=== PATIENT | female | born 1980 | race African-American/Black ===

== ENCOUNTER 2016-08-11 08:17 | Emergency (ER) | payer SELFPAY ==
[~2016-08-11] VITALS: Ht 170.2 cm; Wt 55.0 kg
[2016-08-11] MEDS ORDERED: LORAZEPAM 2MG/ML CPJ IV STA (09:07)
[2016-08-11] MEDS ORDERED: SODIUM CHLORIDE 0.9% 1,000 ML IV ONE (09:07)
[2016-08-11] MEDS ORDERED: FAMOTIDINE 20MG/2ML VIAL IV ONE (09:15)
[2016-08-11 09:38] LABS: BASOPHILS % 0.7 % (0.0-2.0); HEMATOCRIT. 42.9 % (36.0-48.0); HEMOGLOBIN. 14.8 g/dL (12.0-16.0); LYMPHOCYTES % 31.8 % (20.0-50.0); MEAN CORPUSCULAR HEMOGLOBIN 33.4 pg (28.0-32.0); MEAN CORPUSCULAR VOLUME 96.6 fL (81.0-99.0); MEAN PLATELET VOLUME 7.4 fl (7.4-10.4); MONOCYTES % 6.3 % (2.0-8.0); NEUTROPHILS % 61.2 % (40.0-76.0); PLATELET 247 x1000/uL (130-400); RED BLOOD CELL COUNT 4.44 mill/uL (4.2-5.4); RED CELL DISTRIBUTION WIDTH 13.9 % (11.6-14.6)
[2016-08-11 09:48] LABS: CARBON DIOXIDE 25 mEq/L (21-32); CHLORIDE 101 mEq/L (98-107)
[2016-08-11 09:50] LABS: ETHANOL BLOOD < 10 mg/dL
[2016-08-11 09:51] VITALS: BP 126/14
== END 2016-08-11 11:14 | disposition home or self-care (01) ==
LOC: ER 08:47
DX: F10.239 Alcohol dependence with withdrawal, unspecified (principal); Y90.0 Blood alcohol level of less than 20 mg/100 ml
CPT/HCPCS: 36415; 80048; 85025; 93005; 96374; 96375; 99285; G0482; J2060; J3490; J7030; Z7610

== ENCOUNTER 2019-02-21 13:25 | Emergency (ER) | payer MEDICAID ==
[~2019-02-21] VITALS: Ht 172.7 cm; Wt 64.0 kg
[2019-02-21] MEDS ORDERED: ONDANSETRON HCL 4MG/2ML INJ IV STA (16:37)
[2019-02-21] MEDS ORDERED: MORPHINE SULFATE 4 MG/ML CPJ (NOT FOR IM USE) IV STA (16:37)
[2019-02-21] MEDS ORDERED: SODIUM CHLORIDE 0.9% 1,000 ML IV ONE (16:37)
[2019-02-21] MEDS ORDERED: LORAZEPAM 2MG/ML CPJ IV ONE (17:00)
[2019-02-21 17:07] LABS: BASOPHILS % 0.8 % (0.0-2.0); HEMATOCRIT. 38.5 % (36.0-48.0); HEMOGLOBIN. 12.8 g/dL (12.0-16.0); LYMPHOCYTES % 22.6 % (20.0-50.0); MEAN CORPUSCULAR VOLUME 93.4 fL (81.0-99.0); MEAN PLATELET VOLUME 6.9 fl (7.4-10.4); MONOCYTES % 3.8 % (2.0-8.0); NEUTROPHILS % 72.8 % (40.0-76.0); PLATELET 424 x1000/uL (130-400); RED BLOOD CELL COUNT 4.12 mill/uL (4.2-5.4); RED CELL DISTRIBUTION WIDTH 17.2 % (11.6-14.6)
[2019-02-21 17:11] LABS: CHLORIDE 97 mEq/L (98-107)
[2019-02-21 18:07] LABS: CLARITY URINE CLEAR (CLEAR); COLOR URINE YELLOW (YELLOW); KETONES URINE 4+ (NEGATIVE); LEUKOCYTE ESTERASE URINE NEGATIVE (NEGATIVE); NITRITE URINE NEGATIVE (NEGATIVE); OCCULT BLOOD URINE TRACE (NEGATIVE); PROTEIN URINE TRACE (NEGATIVE); SPECIFIC GRAVITY URINE 1.028 (1.005-1.030); UROBILINOGEN URINE 0.2 E.U./dL (0.2-1.0)
[2019-02-21] MEDS ORDERED: KETOROLAC 30MG/ML VIAL IV ONE (18:30)
[2019-02-21 20:33] VITALS: BP 106/69
== END 2019-02-21 20:34 | disposition home or self-care (01) ==
LOC: ER 13:49
DX: T51.0X1A Toxic effect of ethanol, accidental (unintentional), initial encounter (principal); R11.2 Nausea with vomiting, unspecified; R19.7 Diarrhea, unspecified; F41.9 Anxiety disorder, unspecified; R42 Dizziness and giddiness; D47.3 Essential (hemorrhagic) thrombocythemia; Y92.89 Other specified places as the place of occurrence of the external cause
CPT/HCPCS: 36415; 80053; 81003; 81025; 83690; 84484; 85025; 93005; 96361; 96374; 96375; 99284; J1885; J2060; J2270; J2405; J7030

== ENCOUNTER 2021-08-24 16:33 | Inpatient (IN) | payer MEDICAID, OTHER ==
[~2021-08-24] VITALS: Ht 154.3 cm; Wt 54.6 kg
[2021-08-24] MEDS ORDERED: keppra (16:36)
[2021-08-24] MEDS ORDERED: ONDANSETRON HCL 4MG/2ML INJ IV STA (17:51)
[2021-08-24] MEDS ORDERED: MIDAZOLAM HCL 2 MG/2 ML VIAL IV ONE (18:00)
[2021-08-24] MEDS ORDERED: LEVETIRACETAM 500MG PREMIX 100 ML IV ONE (18:00)
[2021-08-24] MEDS ORDERED: FOLIC ACID 1 MG, THIAMINE HCL 100 MG, MVI, ADULT NO.1 10 ML in DEXTROSE 5% WATER 1,000 ML IV ONE ×4 (18:00)
[2021-08-24] MEDS ORDERED: SODIUM CHLORIDE 0.9% 1,000 ML IV ONE (18:00)
[2021-08-24] MEDS ORDERED: DEXTROSE 50% WATER 50ML SYRINGE IV ONE (18:15)
[2021-08-24 19:13] LABS: *AMPHETAMINES SCREEN URINE NEGATIVE (NEGATIVE); *BARBITURATES SCREEN URINE NEGATIVE (NEGATIVE); *COCAINE SCREEN URINE NEGATIVE (NEGATIVE); CANNABINOID URINE SCREEN NEGATIVE (NEGATIVE); METHADONE URINE SCREEN NEGATIVE (NEGATIVE); OPIATES URINE SCREEN NEGATIVE (NEGATIVE); PHENCYCLIDINE URINE SCREEN NEGATIVE (NEGATIVE)
[2021-08-24 19:15] LABS: *BENZODIAZEPINES SCREEN URINE PRESUMTIVE POSITIVE (NEGATIVE)
[2021-08-24 19:36] LABS: HEMATOCRIT. 36.6 % (36.0-48.0); HEMOGLOBIN. 11.1 g/dL (12.0-16.0); MEAN CORPUSCULAR HEMOGLOBIN 32.5 pg (28.0-32.0); MEAN CORPUSCULAR VOLUME 107.5 fL (81.0-99.0); MEAN PLATELET VOLUME 7.5 fl (7.4-10.4); PLATELET 361 x1000/uL (130-400); RED BLOOD CELL COUNT 3.41 mill/uL (4.2-5.4)
[2021-08-24 19:41] LABS: CHLORIDE 103 mEq/L (98-107)
[2021-08-24 19:48] LABS: ETHANOL BLOOD < 10 mg/dL
[2021-08-24 19:50] LABS: HCG SCREEN NEGATIVE
[2021-08-24] MEDS ORDERED: MAGNESIUM 1 G PREMIX 100 ML IV ONE (20:15)
[2021-08-24] MEDS ORDERED: LORAZEPAM 1MG TABLET PO PRN (21:00)
[2021-08-24] MEDS ORDERED: SODIUM CHLORIDE 0.45% 1,000 ML IV SCH (21:00)
[2021-08-24] MEDS ORDERED: ONDANSETRON HCL 4MG/2ML INJ IV PRN (21:15)
[2021-08-24 21:47] LABS: PLATELET ESTIMATE NORMAL
[2021-08-24] MEDS: LEVETIRACETAM 500MG TABLET PO SCH (23:45)
[2021-08-24] MEDS: CHLORDIAZEPOXIDE 25MG CAPSULE PO SCH (23:45)
[2021-08-25] MEDS ORDERED: MAGNESIUM 1 G PREMIX 100 ML IV NR (00:10)
[2021-08-25 00:40] VITALS: BP 123/93
[2021-08-25 04:00] VITALS: BP 115/84
[2021-08-25] MEDS: CHLORDIAZEPOXIDE 25MG CAPSULE PO SCH ×3 (06:09→21:25)
[2021-08-25] MEDS: DEXT 5%/0.9% NACL 1,000 ML IV SCH ×2 (06:10→12:47)
[2021-08-25 08:08] VITALS: BP 96/64
[2021-08-25] MEDS: FOLIC ACID 1MG TABLET PO SCH (10:02)
[2021-08-25] MEDS: PANTOPRAZOLE SODIUM 40 MG/VIAL IV SCH (10:02)
[2021-08-25] MEDS: LORAZEPAM 1MG TABLET PO PRN ×2 (10:02→21:26)
[2021-08-25] MEDS: LEVETIRACETAM 500MG TABLET PO SCH ×2 (10:02→21:25)
[2021-08-25] MEDS: THIAMINE HCL 100MG TABLET PO SCH (10:03)
[2021-08-25 12:04] VITALS: BP 119/84
[2021-08-25 15:53] VITALS: BP 111/81
[2021-08-25 16:09] LABS: BASOPHILS % 0.2 % (0.0-2.0); EOSINOPHILS % 0.3 % (0.0-5.0); HEMATOCRIT. 31.2 % (36.0-48.0); HEMOGLOBIN. 10.5 g/dL (12.0-16.0); LYMPHOCYTES % 19.6 % (20.0-50.0); MEAN CORPUSCULAR HEMOGLOBIN 33.5 pg (28.0-32.0); MEAN CORPUSCULAR VOLUME 99.2 fL (81.0-99.0); MEAN PLATELET VOLUME 7.9 fl (7.4-10.4); MONOCYTES % 7.3 % (2.0-8.0); NEUTROPHILS % 72.6 % (40.0-76.0); PLATELET 296 x1000/uL (130-400); RED BLOOD CELL COUNT 3.14 mill/uL (4.2-5.4); RED CELL DISTRIBUTION WIDTH 20.9 % (11.6-14.6)
[2021-08-25 16:13] LABS: CHLORIDE 101 mEq/L (98-107)
[2021-08-25 20:00] VITALS: BP 117/85
[2021-08-26] VITALS: BP 125/91
[2021-08-26 04:00] VITALS: BP 114/81
[2021-08-26] MEDS: CHLORDIAZEPOXIDE 25MG CAPSULE PO SCH ×3 (05:22→22:02)
[2021-08-26] MEDS: DEXT 5%/0.9% NACL 1,000 ML IV SCH ×2 (05:23→23:00)
[2021-08-26 07:38] VITALS: BP 120/75
[2021-08-26] MEDS: PANTOPRAZOLE SODIUM 40 MG/VIAL IV SCH (08:22)
[2021-08-26] MEDS: THIAMINE HCL 100MG TABLET PO SCH (08:23)
[2021-08-26] MEDS: FOLIC ACID 1MG TABLET PO SCH (08:23)
[2021-08-26] MEDS: LORAZEPAM 1MG TABLET PO PRN (08:23)
[2021-08-26] MEDS: LEVETIRACETAM 500MG TABLET PO SCH ×2 (08:23→22:02)
[2021-08-26 12:00] VITALS: BP 109/87
[2021-08-26 15:36] VITALS: BP 113/83
[2021-08-26 16:38] LABS: BASOPHILS % 0.3 % (0.0-2.0); EOSINOPHILS % 0.9 % (0.0-5.0); HEMATOCRIT. 31.1 % (36.0-48.0); HEMOGLOBIN. 10.2 g/dL (12.0-16.0); MEAN CORPUSCULAR HEMOGLOBIN 33.6 pg (28.0-32.0); MEAN CORPUSCULAR VOLUME 102.1 fL (81.0-99.0); MEAN PLATELET VOLUME 8.1 fl (7.4-10.4); MONOCYTES % 4.6 % (2.0-8.0); NEUTROPHILS % 73.2 % (40.0-76.0); PLATELET 258 x1000/uL (130-400); RED BLOOD CELL COUNT 3.05 mill/uL (4.2-5.4); RED CELL DISTRIBUTION WIDTH 20.7 % (11.6-14.6)
[2021-08-26 17:16] LABS: CHLORIDE 104 mEq/L (98-107)
[2021-08-26] MEDS ORDERED: POTASSIUM CHLORIDE 20MEQ TABLET SR PO SCH (17:30)
[2021-08-26 20:00] VITALS: BP 115/86
[2021-08-26] MEDS: FAMOTIDINE 20MG/2ML VIAL IV SCH (21:00)
[2021-08-27] VITALS: BP 109/74
[2021-08-27] MEDS ORDERED: LORAZEPAM 1MG TABLET PO PRN (02:00)
[2021-08-27 04:00] VITALS: BP 110/80
[2021-08-27] MEDS: CHLORDIAZEPOXIDE 25MG CAPSULE PO SCH ×3 (06:39→21:38)
[2021-08-27 06:52] LABS: BASOPHILS % 0.4 % (0.0-2.0); EOSINOPHILS % 1.3 % (0.0-5.0); HEMATOCRIT. 30.5 % (36.0-48.0); HEMOGLOBIN. 10.4 g/dL (12.0-16.0); LYMPHOCYTES % 25.9 % (20.0-50.0); MEAN CORPUSCULAR HEMOGLOBIN 33.9 pg (28.0-32.0); MEAN CORPUSCULAR VOLUME 99.2 fL (81.0-99.0); MEAN PLATELET VOLUME 8.5 fl (7.4-10.4); MONOCYTES % 4.5 % (2.0-8.0); NEUTROPHILS % 67.9 % (40.0-76.0); PLATELET 242 x1000/uL (130-400); RED BLOOD CELL COUNT 3.07 mill/uL (4.2-5.4); RED CELL DISTRIBUTION WIDTH 20.6 % (11.6-14.6)
[2021-08-27 06:56] LABS: CHLORIDE 101 mEq/L (98-107)
[2021-08-27 07:08] LABS: PHOSPHORUS 1.3 mg/dL (2.5-4.9)
[2021-08-27 08:00] VITALS: BP 123/75
[2021-08-27] MEDS: THIAMINE HCL 100MG TABLET PO SCH (09:00)
[2021-08-27] MEDS: LEVETIRACETAM 500MG TABLET PO SCH ×2 (09:00→21:37)
[2021-08-27] MEDS: FOLIC ACID 1MG TABLET PO SCH (09:00)
[2021-08-27] MEDS: FAMOTIDINE 20MG/2ML VIAL IV SCH (09:00)
[2021-08-27 12:00] VITALS: BP 99/70
[2021-08-27] MEDS ORDERED: MAGNESIUM 4 G PREMIX 100 ML IV SCH (12:00)
[2021-08-27] MEDS ORDERED: POTASSIUM PHOS,M-BASIC-D-BASIC 15 MMOL in DEXT 5% WATER 245 ML IV SCH (12:00)
[2021-08-27 14:05] LABS: HEPATITIS B SURFACE ANTIGEN NEGATIVE
[2021-08-27 16:00] VITALS: BP 102/84
[2021-08-27] MEDS ORDERED: SODIUM PHOS,M-BASIC-D-BASIC 15 MM in DEXT 5% WATER 245 ML IV NR (17:00)
[2021-08-27 20:00] VITALS: BP 96/66
[2021-08-27] MEDS ORDERED: FAMOTIDINE 20MG TABLET PO SCH (21:00)
[2021-08-27] MEDS ORDERED: PANTOPRAZOLE 40MG DR TABLET PO SCH (23:15)
[2021-08-28] VITALS: BP 106/79
[2021-08-28] MEDS ORDERED: DEXT 5%/0.9% NACL 1,000 ML IV SCH (00:15)
[2021-08-28 04:00] VITALS: BP 93/57
[2021-08-28] MEDS: CHLORDIAZEPOXIDE 25MG CAPSULE PO SCH (05:46)
[2021-08-28 06:17] LABS: BASOPHILS % 0.5 % (0.0-2.0); EOSINOPHILS % 1.6 % (0.0-5.0); HEMATOCRIT. 33.3 % (36.0-48.0); LYMPHOCYTES % 28.2 % (20.0-50.0); MEAN CORPUSCULAR HEMOGLOBIN 33.1 pg (28.0-32.0); MEAN CORPUSCULAR VOLUME 100.4 fL (81.0-99.0); MEAN PLATELET VOLUME 8.8 fl (7.4-10.4); MONOCYTES % 4.4 % (2.0-8.0); NEUTROPHILS % 65.3 % (40.0-76.0); PLATELET 240 x1000/uL (130-400); RED BLOOD CELL COUNT 3.32 mill/uL (4.2-5.4)
[2021-08-28 06:44] LABS: CHLORIDE 101 mEq/L (98-107)
[2021-08-28] MEDS ORDERED: PANTOPRAZOLE 40MG DR TABLET PO SCH (07:20)
[2021-08-28 08:23] VITALS: BP 87/56
[2021-08-28] MEDS: FOLIC ACID 1MG TABLET PO SCH (08:51)
[2021-08-28] MEDS: THIAMINE HCL 100MG TABLET PO SCH (08:51)
== END 2021-08-28 09:25 | disposition left against medical advice (07) | DRG 280 ==
LOC: ER 16:33 → MICUSO 20:43 → EDBEDREQTM 20:49 → EDBEDREQ 20:49 → ENRESERV 21:37 → 6WST 08-25 00:40
PROVIDERS: ADMIT Family Medicine; ATTEND Family Medicine
DX: K70.10 Alcoholic hepatitis without ascites (principal); E87.1 Hypo-osmolality and hyponatremia; F10.239 Alcohol dependence with withdrawal, unspecified; E83.42 Hypomagnesemia; G40.909 Epilepsy, unspecified, not intractable, without status epilepticus; R25.1 Tremor, unspecified; F41.9 Anxiety disorder, unspecified; Z53.29 Procedure and treatment not carried out because of patient's decision for other reasons
CPT/HCPCS: 36415; 71045; 76700; 80048; 80053; 80076; 80305; 80320; 82140; 82950; 82962; 83735; 84100; 84703; 85025; 86705; 86709; 86803; 87340; 93005; 99285; C9113; J1953; J2250; J2405; J3411; J3475; J3490; J7030; J7060; J7070; G0480

== ENCOUNTER 2021-11-09 15:42 | Emergency (ER) | payer OTHER ==
[~2021-11-09] VITALS: Ht 172.7 cm; Wt 56.0 kg
[~2021-11-09 15:42] MED LIST: keppra
[2021-11-10] MEDS ORDERED: DICYCLOMINE 10 MG/5 ML ORAL SYR PO ONE (02:30)
[2021-11-10] MEDS ORDERED: MAGNESIUM/ALUMINUM HYDROXIDE/SIMETHICONE 30ML UDC PO ONE (02:30)
[2021-11-10] MEDS ORDERED: FAMOTIDINE 20MG TABLET PO ONE (02:30)
[2021-11-10] MEDS ORDERED: ONDANSETRON 4MG ODT PO ONE (02:30)
[2021-11-10] MEDS ORDERED: VISCOUS LIDOCAINE 2% 15 ML UDC PO ONE (02:30)
[2021-11-10 04:23] VITALS: BP 102/60
== END 2021-11-10 04:39 | disposition home or self-care (01) ==
LOC: ER 15:49
DX: K29.70 Gastritis, unspecified, without bleeding (principal); F10.229 Alcohol dependence with intoxication, unspecified; Z86.73 Personal history of transient ischemic attack (TIA), and cerebral infarction without residual deficits; Y90.0 Blood alcohol level of less than 20 mg/100 ml
CPT/HCPCS: 81025; 99284; Q0162

== ENCOUNTER 2022-10-09 00:42 | Emergency (ER) | payer MEDICAID, OTHER ==
[~2022-10-09] VITALS: Ht 160 cm; Wt 56.0 kg
[2022-10-09 00:47] VITALS: O2SAT 96
[2022-10-09] MEDS ORDERED: LORAZEPAM 2MG/ML CPJ IV STA (01:06)
[2022-10-09] MEDS ORDERED: ONDANSETRON HCL 4MG/2ML INJ IV STA (01:06)
[2022-10-09] MEDS ORDERED: SODIUM CHLORIDE 0.9% 1,000 ML IV ONE (01:15)
[2022-10-09 01:23] LABS: EOSINOPHILS % 0.4 % (0.0-5.0); HEMATOCRIT. 31.7 % (36.0-48.0); HEMOGLOBIN. 10.4 g/dL (12.0-16.0); LYMPHOCYTES % 66.9 % (20.0-50.0); MEAN CORPUSCULAR HEMOGLOBIN 31.2 pg (28.0-32.0); MEAN CORPUSCULAR HGB CONC 32.8 g/dL (31.0-37.0); MEAN CORPUSCULAR VOLUME 94.9 fL (81.0-99.0); MEAN PLATELET VOLUME 6.9 fl (7.4-10.4); NEUTROPHILS % 24.7 % (40.0-76.0); PLATELET 317 x1000/uL (130-400); RED BLOOD CELL COUNT 3.34 mill/uL (4.2-5.4); RED CELL DISTRIBUTION WIDTH 18.8 % (11.6-14.6); WHITE BLOOD COUNT 4.6 x1000/uL (4.5-11.0)
[2022-10-09 01:31] LABS: CHLORIDE 103 mEq/L (98-107); INDEX HEMOLYSI 1 (1-3); INDEX ICTERIC 1 (1-4); INDEX LIPEMIC 1 (1-3); POTASSIUM 3.6 mEq/L (3.5-5.1); SODIUM 142 mEq/L (136-145)
[2022-10-09 01:41] LABS: ALANINE AMINOTRANSFERASE 108 IU/L (13-61); ALBUMIN 4.2 g/dL (3.4-5.0); ASPARTATE AMINOTRANSFERASE 104 IU/L (15-37); CALCIUM 8.6 mg/dL (8.5-10.1); CARBON DIOXIDE 26 mEq/L (21-32); CREATININE 0.6 mg/dL (0.6-1.3); ETHANOL BLOOD 260 mg/dL (-10); GLUCOSE 78 mg/dL (70-105); PROTEIN TOTAL 7.5 g/dL (6.0-8.3); UREA NITROGEN BLOOD 9 mg/dL (7-21)
[2022-10-09 01:59] LABS: HCG SCREEN NEGATIVE
[2022-10-09 03:04] LABS: *AMPHETAMINES SCREEN URINE NEGATIVE (NEGATIVE); *BARBITURATES SCREEN URINE NEGATIVE (NEGATIVE); *COCAINE SCREEN URINE NEGATIVE (NEGATIVE); CANNABINOID URINE SCREEN NEGATIVE (NEGATIVE); ECSTASY MDMA SCREEN URINE NEGATIVE (NEGATIVE); METHADONE URINE SCREEN NEGATIVE (NEGATIVE); OPIATES URINE SCREEN NEGATIVE (NEGATIVE); PHENCYCLIDINE URINE SCREEN NEGATIVE (NEGATIVE)
[2022-10-09 03:15] LABS: *BENZODIAZEPINES SCREEN URINE PRESUMTIVE POSITIVE (NEGATIVE)
[2022-10-09 05:13] VITALS: BP 118/82; PULSE 66; RESP 18; TEMP 98.6
== END 2022-10-09 05:15 | disposition home or self-care (01) ==
LOC: ER 00:42
DX: T51.0X1A Toxic effect of ethanol, accidental (unintentional), initial encounter (principal); Z98.890 Other specified postprocedural states; Z86.73 Personal history of transient ischemic attack (TIA), and cerebral infarction without residual deficits; Z86.59 Personal history of other mental and behavioral disorders; Y92.9 Unspecified place or not applicable
CPT/HCPCS: 80053; 80305; 80320; 84703; 83690; 85025; 36415; 93005; 96361; 96374; 96375; 99284; J2060; J2405; J7030; Z7610 ×3; G0480

== ENCOUNTER 2023-08-18 19:38 | Emergency (ER) | payer BC, MEDICAID ==
[~2023-08-18] VITALS: Ht 167.6 cm; Wt 50.0 kg
[~2023-08-18 19:38] MED LIST changes: +PROT40 MT; -keppra
[2023-08-18 19:43] VITALS: O2SAT 98
[2023-08-18] MEDS: KETOROLAC 30MG/ML VIAL IV STA (20:28)
[2023-08-18] MEDS: ONDANSETRON HCL 4MG/2ML INJ IV STA (20:30)
[2023-08-18] MEDS: SODIUM CHLORIDE 0.9% 1,000 ML IV ONE (20:30)
[2023-08-18 21:19] LABS: BASOPHILS % 0.5 % (0.0-2.0); DIFFERENTIAL COMMENT 0; EOSINOPHILS % 0.5 % (0.0-5.0); HEMATOCRIT. 37.5 % (36.0-48.0); HEMOGLOBIN. 12.3 g/dL (12.0-16.0); LYMPHOCYTES % 27.3 % (20.0-50.0); MEAN CORPUSCULAR HEMOGLOBIN 33.1 pg (28.0-32.0); MEAN CORPUSCULAR HGB CONC 32.7 g/dL (31.0-37.0); MEAN CORPUSCULAR VOLUME 101.1 fL (81.0-99.0); MEAN PLATELET VOLUME 8.2 fl (7.4-10.4); MONOCYTES % 7.1 % (2.0-8.0); NEUTROPHILS % 64.6 % (40.0-76.0); PLATELET 228 x1000/uL (130-400); RED BLOOD CELL COUNT 3.71 mill/uL (4.2-5.4); RED CELL DISTRIBUTION WIDTH 19.1 % (11.6-14.6); WHITE BLOOD COUNT 2.6 x1000/uL (4.5-11.0)
[2023-08-18 21:28] LABS: PROTHROMBIN TIME 11.6 sec (9.6-11.0)
[2023-08-18 21:29] LABS: CHLORIDE 100 mEq/L (98-107); POTASSIUM 3.2 mEq/L (3.5-5.1); SODIUM 134 mEq/L (136-145)
[2023-08-18 21:30] LABS: CALCIUM 10.2 mg/dL (8.7-10.4); CARBON DIOXIDE 24 mEq/L (21-32)
[2023-08-18 21:35] LABS: CREATININE 0.7 mg/dL (0.6-1.0); ETHANOL BLOOD < 10 mg/dL (<10); GLUCOSE 111 mg/dL (70-105); UREA NITROGEN BLOOD 7 mg/dL (9-23)
[2023-08-18 21:37] LABS: TROPONIN I HIGH SENSITIVITY < 4 ng/L (3.0-34)
[2023-08-18 21:39] LABS: HCG SCREEN NEGATIVE
[2023-08-19 03:38] VITALS: BP 111/70; PULSE 93; RESP 20; TEMP 98.2
== END 2023-08-19 03:40 | disposition home or self-care (01) ==
LOC: ER 19:38
DX: E86.0 Dehydration (principal); K21.9 Gastro-esophageal reflux disease without esophagitis
CPT/HCPCS: 80048; 80320; 84703; 83880; 83690; 85025; 85610; 84484; 36415; 71045; 74176; 93005; 96360; 99285; J7030; J1885; J2405; G0480